=== PATIENT | female | born 1960 | race African-American/Black ===

== ENCOUNTER 2017-12-24 13:54 | Emergency (ER) | payer OTHER ==
[~2017-12-24 13:54] MED LIST: ALBU.5I INH; DULE200A INH; FEXO180 PO; FLON0.053; HYZA50TA2 PO; PRED50 PO; VENTAER INH
[2017-12-24 13:57] VITALS: BP 165/92; PULSE 83; RESP 20; TEMP 97.9; O2SAT 97
[2017-12-24] MEDS ORDERED: FLUT1SPR5 EACH NARE (14:09)
[2017-12-24] MEDS ORDERED: MONT10TA2 PO (14:09)
[2017-12-24] MEDS ORDERED: FLUTI44I INH (14:09)
[2017-12-24] MEDS ORDERED: IPRA0.06 (14:09)
[2017-12-24] MEDS ORDERED: LOSA50TA2 PO (14:09)
[2017-12-24] MEDS ORDERED: MEDR4PAK PO (14:26)
--- NOTE | 2017-12-24 14:27 | PD ---
HPI Chief Complaint: ENT Complaint Time Seen by Provider: 14:20 Travel History International Travel<30 days: No Contact w/Intl Traveler<30days: No Traveled to known affect area: No History of Present Illness HPI 57-year-old female with a history of asthma presents emergency department complaining of left ear pain that has been persistent for 1 week. Says that she has heard some popping and movement in her ear that has been exacerbated by moving the jaw. The ear pain starts in her lower ear and radiates to the neck. She denies cough or congestion. Says she developed a mild sore throat this morning since she decided to come in for evaluation. She denies fevers chills. Says she has not had an asthma exacerbation approximately 1 year. She takes Singulair, fluticasone, Flovent daily. PFSH Past Medical History Asthma: Yes Diminished Hearing: No Hypertension: Yes Influenza Vaccination: Yes ?: Not : 1 Para: 1 Past Surgical History Section: Yes Other Surgery: Yes (hernia) Social History Alcohol Use: Yes Tobacco Use: No Substance Use: No Allergies-Medications (Allergen,Severity, Reaction): Coded Allergies: Sulfa (Sulfonamide Antibiotics) (Unverified Allergy, Unknown, UNKNOWN REACTION, 12/24/17) Reported Meds & Prescriptions Reported Meds & Active Scripts Active Medrol Dosepak (Methylprednisolone) 4 Mg Dspk 4 Mg PO DIRECTED Per Pharmacist direction Reported Ipratropium Hildreth 42 Mcg (0.06 %) [place] 1 Flonase Nasal [place] (Fluticasone Nasal [place]) 50 Mcg/Act [place] 50 Mcg EACH NARE BID Losartan-Hydrochlorothiazide 50-12.5 Mg Tab 1 Tab PO DAILY Flovent Hfa 10.6 GM Inh (Fluticasone Propionate) 44 Mcg/Act Inh 2 Puff INH DAILY Use daily at the same time. Singulair (Montelukast Sodium) 10 Mg Tab 10 Mg PO HS Review of Systems Except as stated in HPI: all other systems reviewed are Neg Physical Exam Narrative GENERAL: Well-nourished, well-developed patient, in NAD SKIN: Focused skin assessment warm/dry. No rashes or lesions. HEAD: Normocephalic. Atraumatic. EYES: No scleral icterus. No injection or drainage. PERRLA, EOMI EARS: Bilateral pinnae and external canals appear within normal limits. Bilateral tympanic membranes without erythema or perforation. Left tympanic membrane pearly mercer with bubbles of serous fluid. Noninjected. THROAT: No pharyngeal injection, exudates, or tonsillar hypertrophy. Airway is patent. NECK: Supple, trachea midline. No JVD. No meningismus. Scant lymphadenopathy in the left anterior cervical chain CARDIOVASCULAR: Regular rate and rhythm without murmurs, gallops, or rubs. RESPIRATORY: Breath sounds equal bilaterally. No accessory muscle use. No wheezes, rales, or rhonchi MUSCULOSKELETAL: No cyanosis, or edema. BACK: Nontender without obvious deformity. No CVA tenderness. Data Data Last Documented VS Vital Signs Date Time Temp Pulse Resp B/P (MAP) Pulse Ox O2 Delivery O2 Flow Rate FiO2 12/24/17 13:57 97.9 83 20 165/92 (116) 97 MDM Medical Decision Making Medical Screen Exam Complete: Yes Emergency Medical Condition: Yes Differential Diagnosis Allergies, otitis media, allergic rhinitis Narrative Course 57-year-old female with a history of asthma presents emergency department complaining of left ear pain that has been persistent for 1 week. Says that she has heard some popping and movement in her ear that has been exacerbated by moving the jaw. The ear pain described as aching, starts in her lower ear and radiates to the neck. She denies cough or congestion. Says she developed a mild sore throat this morning since she decided to come in for evaluation. She denies fevers chills. Says she has not had an asthma exacerbation approximately 1 year. She takes Singulair, fluticasone, Flovent daily. Vital signs are stable. Physical exam findings consistent with allergic otitis media. There is an air- fluid level in the left tympanic membrane. No perforation. Patient will be discharged with Medrol Dosepak. Advised that she may take Claritin, Lynne, or Zyrtec in combination with a regular medications to reduce her symptoms. She should follow-up with her primary care physician. Return for worsening or persistent symptoms. Diagnosis Primary Impression: Allergic otitis media of left ear Qualified Codes: H65.112 - Acute and subacute allergic otitis media (mucoid) ( sanguinous) (serous), left ear Referrals: Primary Care Physician Additional Instructions: Take all medications as prescribed. You may add Zyrtec, Claritin, or Lynne on to your daily regimen while taking prednisone. Ensure adequate fluid intake and proper nutrition. Scripts Methylprednisolone Dosepak (Medrol Dosepak) 4 Mg Dspk 4 MG PO DIRECTED, #1 DSPK 0 Refills Per Pharmacist direction Prov: Felix Lou MD 12/24/17 Disposition: 01 DISCHARGE HOME Condition: Stable Soco Goldstein Dec 24, 2017 14:27
== END 2017-12-24 14:33 | disposition home or self-care (01) ==
LOC: PHEFT 13:54
DX: H65.112 Acute and subacute allergic otitis media (mucoid) (sanguinous) (serous), left ear (principal); J45.909 Unspecified asthma, uncomplicated; I10 Essential (primary) hypertension
CPT/HCPCS: 99283